=== PATIENT | female | born 1955 | race Caucasian/White ===

== ENCOUNTER → 2019-03-29 | Outpatient (CLI) | payer BC | LOC: LAB.O 10:15 | PROVIDERS: ATTEND Obstetrics & Gynecology Maternal & Fetal Medicine | DX: N95.2 Postmenopausal atrophic vaginitis (principal) ==

== ENCOUNTER 2019-05-22 20:40 | Emergency (ER) | payer BC ==
--- NOTE | 2019-05-22 20:55 | ED.PDOC ---
History of Present Illness - General Chief Complaint: ENT Problem Stated Complaint: sore throat, cough Time Seen by Provider: 05/22/19 20:53 Source: patient, RN notes reviewed, Vital Signs reviewed Exam Limitations: no limitations Additional Information: this is a 63-year-old female who presents to the emergency Department with complaints of sore throat and cough. She states it started on Monday 3 days ago. She denies any fever. She has taken some Tylenol today otherwise has not taken any symptomatic medications. She was given a leftover Augmentin yesterday and then started on Zithromax today. She received Zithromax from her who is a dentist. She reports a mildly productive cough. She did not get flu immunization. She is not having any GI symptoms. - History of Present Illness Allergies/Adverse Reactions: Allergies NO KNOWN ALLERGY Allergy (Verified 05/22/19 20:52) Home Medications: Ambulatory Orders NK 05/22/19 Review of Systems - Review of Systems Constitutional: States: malaise. Denies: chills, fever EENTM: States: ear pain, nose congestion, throat pain Respiratory: States: cough. Denies: orthopnea, short of breath, stridor, wheezing Cardiology: States: no symptoms reported. Denies: chest pain Gastrointestinal/Abdominal: States: no symptoms reported. Denies: abdominal pain, diarrhea, nausea, vomiting Genitourinary: States: no symptoms reported Musculoskeletal: States: no symptoms reported Skin: States: no symptoms reported Neurological: States: no symptoms reported Endocrine: States: no symptoms reported Hematologic/Lymphatic: States: no symptoms reported Past Medical History (General) - Patient Medical History Hx Seizures: No Hx Stroke: No Hx Dementia: No Hx Asthma: No Hx of COPD: No Hx Cardiac Disorders: No Hx Congestive Heart Failure: No Hx Pacemaker: No Hx Hypertension: No Hx Thyroid Disease: Yes Hx Diabetes: No Hx Gastroesophageal Reflux: No Hx Renal Disease: No Hx Cancer: No Hx of HIV: No Hx Hepatitis C: No Hx MRSA: No Surgical History: other - Vaccination History Hx Tetanus, Diphtheria Vaccination: Yes Hx Influenza Vaccination: No - Social History Hx Tobacco Use: No Hx Alcohol Use: No Family Medical History - Family History Mother Family History: Unknown Physical Exam - Physical Exam General Appearance: Alert, No apparent distress Eye Exam: bilateral normal Ear Exam: bilateral ear: auricle normal, canal normal, TM normal Nasal Exam: normal inspection Throat Exam: normal mouth inspection, other - pharyngeal erythema noted, no tonsillar hypertrophy or exudates, no peritonsillar abscess Neck: non-tender, full range of motion, supple, normal inspection, trachea midline, other - no lymphadenopathy Cardiovascular/Respiratory: regular rate, rhythm, no M/R/G, normal peripheral pulses, no JVD, normal breath sounds, no respiratory distress 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 Have discussed these findings with her. Agrees with plan. - Results/Orders Results/Orders: Laboratory Tests 05/22/19 05/22/19 21:10 21:20 Monoscreen Negative Group A Strep Rapid Negative Influenza a and b both negative Departure - Departure Clinical Impression: Acute nasopharyngitis (common cold) Pharyngitis Qualifiers: Pharyngitis/tonsillitis etiology: unspecified etiology Qualified Code(s): J02.9 - Acute pharyngitis, unspecified Time of Disposition: 21:54 Disposition: Discharge to Home or Self Care Condition: Good Departure Forms: ED Discharge - Pt. Copy, Patient Portal Self Enrollment Instructions: Sore Throat, Adult (DC) Referrals: MELODY CAMERON MD [Primary Care Provider] - 1-2 Weeks Home Medications: Ambulatory Orders NK 05/22/19 Additional Instructions: I do not feel that the need for completion of Zithromax as necessary at this time. I would recommend Claritin in the morning and if needing more antihistamine control taking an additional Benadryl in the evening. Chloraseptic spray may be used as well as cold fluids or popsicles. The use of anti-inflammatories may also be beneficial. If worsening of symptoms follow-up with PCP or return to emergency department for further evaluation
[2019-05-22] MEDS ORDERED: DEXAMETHASONE INJ 10 MG/ML VIAL IM ONE (21:52)
[2019-05-22 22:25] VITALS: BP 150/91; TEMP 99.5; O2SAT 97
== END 2019-05-22 22:25 | disposition home or self-care (01) ==
LOC: ER 20:40
DX: J02.9 Acute pharyngitis, unspecified (principal); J00 Acute nasopharyngitis [common cold]; E07.9 Disorder of thyroid, unspecified
CPT/HCPCS: 86403; 87070; 87502; 87880; J1100